=== PATIENT | male | born 1960 | race Two or more races ===

== ENCOUNTER 2022-07-29 07:12 | Outpatient (CLI) | payer OTHER | END 2022-07-29 07:15 | disposition home or self-care (01) | LOC: EDBD 07:12 → NUCLEAR 07:12 → EDSEX 07:12 → NUCLEAR 07:15 | PROVIDERS: ATTEND Internal Medicine | DX: I25.118 Atherosclerotic heart disease of native coronary artery with other forms of angina pectoris (principal); I11.9 Hypertensive heart disease without heart failure | CPT/HCPCS: 78452; 93017; A9500; J0153 ==